=== PATIENT | male | born 1990 | race Caucasian/White ===

== ENCOUNTER 2021-06-03 09:19 | Emergency (ER) | payer BC ==
[~2021-06-03] VITALS: Ht 167.6 cm; Wt 111.4 kg
[2021-06-03 11:03] VITALS: BP 154/91
== END 2021-06-03 11:38 | disposition home or self-care (01) ==
LOC: EMS 09:19
DX: S39.012A Strain of muscle, fascia and tendon of lower back, initial encounter (principal); S56.912A Strain of unspecified muscles, fascia and tendons at forearm level, left arm, initial encounter; V49.9XXA Car occupant (driver) (passenger) injured in unspecified traffic accident, initial encounter; Y93.89 Activity, other specified; Y92.89 Other specified places as the place of occurrence of the external cause; Y99.8 Other external cause status
CPT/HCPCS: 99281; Z7502